=== PATIENT | male | born 1940 | race Two or more races ===

== ENCOUNTER 2017-07-20 09:36 | Outpatient (CLI) | payer OTHER ==
[~2017-07-20 09:36] MED LIST: MIRALAX12 EA PO; VASOTEC10 MG PO
== END 2017-07-20 09:51 | disposition home or self-care (01) ==
LOC: LAB 09:36
DX: I10 Essential (primary) hypertension (principal); E11.9 Type 2 diabetes mellitus without complications; E03.8 Other specified hypothyroidism; E78.2 Mixed hyperlipidemia; M81.0 Age-related osteoporosis without current pathological fracture

== ENCOUNTER 2017-10-17 11:38 | Outpatient (CLI) | payer OTHER | END 2017-10-17 11:42 | disposition home or self-care (01) | LOC: LAB 11:38 | DX: B35.1 Tinea unguium (principal) ==

== ENCOUNTER 2017-10-28 08:24 | Outpatient (CLI) | payer OTHER ==
[~2017-10-28] VITALS: Ht 182.9 cm; Wt 77.1 kg
== END 2017-10-28 08:40 | disposition home or self-care (01) ==
LOC: OFIC 805 08:24
DX: H90.3 Sensorineural hearing loss, bilateral (principal); H61.23 Impacted cerumen, bilateral; H93.13 Tinnitus, bilateral; M26.69 Other specified disorders of temporomandibular joint

== ENCOUNTER 2017-11-17 09:55 | Outpatient (CLI) | payer OTHER | END 2017-11-17 10:00 | disposition home or self-care (01) | LOC: LAB 09:55 | DX: B35.1 Tinea unguium (principal) ==

== ENCOUNTER 2017-12-21 10:27 | Outpatient (CLI) | payer OTHER | END 2017-12-21 10:29 | disposition home or self-care (01) | LOC: LAB 10:27 | DX: B35.1 Tinea unguium (principal) ==

== ENCOUNTER 2018-01-06 09:00 | Outpatient (CLI) | payer OTHER ==
[~2018-01-06] VITALS: Ht 182.9 cm; Wt 77.1 kg
== END 2018-01-06 09:15 | disposition home or self-care (01) ==
LOC: OFIC 805 09:00
DX: H90.3 Sensorineural hearing loss, bilateral (principal); H93.13 Tinnitus, bilateral

== ENCOUNTER 2018-01-06 12:28 | Outpatient (CLI) | payer OTHER | END 2018-01-06 12:31 | disposition home or self-care (01) | LOC: LAB 12:28 | DX: R42 Dizziness and giddiness (principal) ==

== ENCOUNTER 2018-01-09 10:39 | Outpatient (CLI) | payer OTHER | END 2018-01-09 10:50 | disposition home or self-care (01) | LOC: MRI 10:39 | DX: H93.12 Tinnitus, left ear (principal); H90.42 Sensorineural hearing loss, unilateral, left ear, with unrestricted hearing on the contralateral side | CPT/HCPCS: 70553; A9579; 70551 ==

== ENCOUNTER 2018-01-25 15:45 | Outpatient (CLI) | payer OTHER | END 2018-01-25 15:46 | disposition home or self-care (01) | LOC: LAB 15:45 | DX: B35.1 Tinea unguium (principal) ==

== ENCOUNTER 2018-01-27 07:39 | Outpatient (CLI) | payer OTHER ==
[~2018-01-27] VITALS: Ht 182.9 cm; Wt 77.1 kg
== END 2018-01-27 08:00 | disposition home or self-care (01) ==
LOC: OFIC 805 07:39
DX: H90.3 Sensorineural hearing loss, bilateral (principal); H61.23 Impacted cerumen, bilateral; H93.13 Tinnitus, bilateral; M26.613 Adhesions and ankylosis of bilateral temporomandibular joint; R14.0 Abdominal distension (gaseous)

== ENCOUNTER 2018-03-09 14:06 | Outpatient (CLI) | payer OTHER | END 2018-03-09 14:18 | disposition home or self-care (01) | LOC: LAB 14:06 | DX: F52.21 Male erectile disorder (principal); E29.1 Testicular hypofunction; C61 Malignant neoplasm of prostate; B35.1 Tinea unguium ==

== ENCOUNTER → 2018-03-22 09:07 | Outpatient (CLI) | payer OTHER | END | disposition home or self-care (01) | LOC: LAB 09:07 | DX: I10 Essential (primary) hypertension (principal); E11.9 Type 2 diabetes mellitus without complications; E03.8 Other specified hypothyroidism; E78.2 Mixed hyperlipidemia; N40.0 Benign prostatic hyperplasia without lower urinary tract symptoms; M81.0 Age-related osteoporosis without current pathological fracture ==

== ENCOUNTER 2018-05-05 09:02 | Outpatient (CLI) | payer OTHER ==
[~2018-05-05] VITALS: Ht 182.9 cm; Wt 77.1 kg
== END 2018-05-05 09:15 | disposition home or self-care (01) ==
LOC: OFIC 805 09:02
DX: H90.3 Sensorineural hearing loss, bilateral (principal); H61.23 Impacted cerumen, bilateral; H93.13 Tinnitus, bilateral; M26.613 Adhesions and ankylosis of bilateral temporomandibular joint

== ENCOUNTER 2018-08-24 11:27 | Outpatient (CLI) | payer OTHER | END 2018-08-24 11:34 | disposition home or self-care (01) | LOC: LAB 11:27 | DX: E03.8 Other specified hypothyroidism (principal); I10 Essential (primary) hypertension; E11.9 Type 2 diabetes mellitus without complications; E78.2 Mixed hyperlipidemia; Z12.11 Encounter for screening for malignant neoplasm of colon; N40.0 Benign prostatic hyperplasia without lower urinary tract symptoms ==

== ENCOUNTER 2018-08-25 11:35 | Outpatient (CLI) | payer OTHER | END 2018-08-25 11:40 | disposition home or self-care (01) | LOC: LAB 11:35 | DX: E03.8 Other specified hypothyroidism (principal); E11.9 Type 2 diabetes mellitus without complications; I10 Essential (primary) hypertension; E78.2 Mixed hyperlipidemia; Z12.11 Encounter for screening for malignant neoplasm of colon; N40.0 Benign prostatic hyperplasia without lower urinary tract symptoms ==

== ENCOUNTER 2018-09-08 09:36 | Outpatient (CLI) | payer OTHER | END 2018-09-08 09:43 | disposition home or self-care (01) | LOC: LAB 09:36 | DX: F52.21 Male erectile disorder (principal); C61 Malignant neoplasm of prostate; R31.29 Other microscopic hematuria; E29.1 Testicular hypofunction ==

== ENCOUNTER → 2018-09-12 | Outpatient (CLI) | payer OTHER | END | disposition home or self-care (01) | LOC: NUCLEAR 07:00 | DX: R07.89 Other chest pain (principal); I10 Essential (primary) hypertension ==

== ENCOUNTER → 2019-02-20 08:37 | Outpatient (CLI) | payer OTHER | END | disposition home or self-care (01) | LOC: LAB 08:37 | DX: I10 Essential (primary) hypertension (principal); E11.9 Type 2 diabetes mellitus without complications; E03.8 Other specified hypothyroidism; E78.2 Mixed hyperlipidemia ==

== ENCOUNTER → 2019-06-22 09:17 | Outpatient (CLI) | payer OTHER | END | disposition home or self-care (01) | LOC: LAB 09:17 | DX: E78.2 Mixed hyperlipidemia (principal); I10 Essential (primary) hypertension; E11.9 Type 2 diabetes mellitus without complications; Z12.31 Encounter for screening mammogram for malignant neoplasm of breast; E03.8 Other specified hypothyroidism ==

== ENCOUNTER 2019-06-26 09:57 | Outpatient (CLI) | payer OTHER | END 2019-06-26 10:00 | disposition home or self-care (01) | LOC: LAB 09:57 | DX: E11.9 Type 2 diabetes mellitus without complications (principal); I10 Essential (primary) hypertension; E03.8 Other specified hypothyroidism; E78.2 Mixed hyperlipidemia; Z12.11 Encounter for screening for malignant neoplasm of colon; N40.0 Benign prostatic hyperplasia without lower urinary tract symptoms ==

== ENCOUNTER → 2020-02-11 09:38 | Outpatient (CLI) | payer OTHER | END | disposition home or self-care (01) | LOC: LAB 09:38 | PROVIDERS: ATTEND Internal Medicine Cardiovascular Disease | DX: N40.0 Benign prostatic hyperplasia without lower urinary tract symptoms (principal); I10 Essential (primary) hypertension; E11.9 Type 2 diabetes mellitus without complications; E03.8 Other specified hypothyroidism; E78.2 Mixed hyperlipidemia; E55.9 Vitamin D deficiency, unspecified ==

== ENCOUNTER → 2020-10-21 10:36 | Outpatient (CLI) | payer OTHER | END | disposition home or self-care (01) | LOC: LAB 10:36 | PROVIDERS: ATTEND Internal Medicine Cardiovascular Disease | DX: E03.9 Hypothyroidism, unspecified (principal); I10 Essential (primary) hypertension; E11.9 Type 2 diabetes mellitus without complications; E78.2 Mixed hyperlipidemia; Z12.11 Encounter for screening for malignant neoplasm of colon; N40.0 Benign prostatic hyperplasia without lower urinary tract symptoms ==

== ENCOUNTER → 2020-10-22 13:37 | Outpatient (CLI) | payer OTHER | END | disposition home or self-care (01) | LOC: LAB 13:37 | PROVIDERS: ATTEND Internal Medicine Cardiovascular Disease | DX: I10 Essential (primary) hypertension (principal); E11.9 Type 2 diabetes mellitus without complications; E03.9 Hypothyroidism, unspecified; E78.2 Mixed hyperlipidemia; Z12.11 Encounter for screening for malignant neoplasm of colon; N40.0 Benign prostatic hyperplasia without lower urinary tract symptoms ==

== ENCOUNTER 2021-01-15 10:06 | Outpatient (CLI) | payer OTHER | END 2021-01-15 10:07 | disposition home or self-care (01) | LOC: LAB 10:06 | PROVIDERS: ATTEND Internal Medicine Cardiovascular Disease | DX: I10 Essential (primary) hypertension (principal) ==

== ENCOUNTER 2021-05-29 11:23 | Outpatient (CLI) | payer OTHER | END 2021-05-29 11:39 | disposition home or self-care (01) | LOC: LAB 11:23 | PROVIDERS: ATTEND Internal Medicine Cardiovascular Disease | DX: I10 Essential (primary) hypertension (principal); E11.9 Type 2 diabetes mellitus without complications; E03.8 Other specified hypothyroidism; E78.2 Mixed hyperlipidemia ==

== ENCOUNTER 2021-06-26 14:40 | Outpatient (CLI) | payer OTHER | END 2021-06-26 14:57 | disposition home or self-care (01) | LOC: RAD 14:40 | DX: M54.51 Vertebrogenic low back pain (principal); M54.16 Radiculopathy, lumbar region ==

== ENCOUNTER 2021-07-16 10:04 | Outpatient (CLI) | payer OTHER | END 2021-07-16 10:13 | disposition home or self-care (01) | LOC: MRI 10:04 | PROVIDERS: ATTEND Physical Medicine & Rehabilitation | DX: M54.16 Radiculopathy, lumbar region (principal) | CPT/HCPCS: 72148 ==

== ENCOUNTER 2022-02-12 09:55 | Outpatient (CLI) | payer OTHER | END 2022-02-12 10:07 | disposition home or self-care (01) | LOC: LAB 09:55 | PROVIDERS: ATTEND Internal Medicine Cardiovascular Disease | DX: I10 Essential (primary) hypertension (principal); E11.9 Type 2 diabetes mellitus without complications; E03.9 Hypothyroidism, unspecified; E78.2 Mixed hyperlipidemia; Z12.11 Encounter for screening for malignant neoplasm of colon; E55.9 Vitamin D deficiency, unspecified ==

== ENCOUNTER 2022-02-15 11:18 | Outpatient (CLI) | payer OTHER | END 2022-02-15 11:19 | disposition home or self-care (01) | LOC: LAB 11:18 | PROVIDERS: ATTEND Internal Medicine Cardiovascular Disease | DX: I10 Essential (primary) hypertension (principal); E11.9 Type 2 diabetes mellitus without complications; E03.9 Hypothyroidism, unspecified; E78.2 Mixed hyperlipidemia; Z12.11 Encounter for screening for malignant neoplasm of colon; E55.9 Vitamin D deficiency, unspecified ==

== ENCOUNTER 2022-06-03 10:39 | Outpatient (CLI) | payer OTHER | END 2022-06-03 10:48 | disposition home or self-care (01) | LOC: LAB 10:39 | PROVIDERS: ATTEND Internal Medicine Cardiovascular Disease | DX: I10 Essential (primary) hypertension (principal); E11.9 Type 2 diabetes mellitus without complications; E03.9 Hypothyroidism, unspecified; E78.2 Mixed hyperlipidemia; Z12.11 Encounter for screening for malignant neoplasm of colon ==

== ENCOUNTER 2022-06-04 10:34 | Outpatient (CLI) | payer OTHER | END 2022-06-04 10:44 | disposition home or self-care (01) | LOC: LAB 10:34 | PROVIDERS: ATTEND Internal Medicine Cardiovascular Disease | DX: I10 Essential (primary) hypertension (principal); E11.9 Type 2 diabetes mellitus without complications; E03.9 Hypothyroidism, unspecified; E78.2 Mixed hyperlipidemia; Z12.11 Encounter for screening for malignant neoplasm of colon ==

== ENCOUNTER 2022-10-30 09:00 | Emergency (ER) | payer OTHER ==
[~2022-10-30] VITALS: Ht 167.6 cm; Wt 74.8 kg
== END 2022-10-30 16:54 ==
LOC: ER 09:00
DX: U07.1 COVID-19 (principal); I10 Essential (primary) hypertension

== ENCOUNTER 2022-11-01 09:34 | Outpatient (CLI) | payer OTHER | END 2022-11-01 09:41 | disposition home or self-care (01) | LOC: LAB 09:34 | PROVIDERS: ATTEND General Practice | DX: A49.3 Mycoplasma infection, unspecified site (principal); D69.6 Thrombocytopenia, unspecified ==

== ENCOUNTER 2022-11-02 20:26 | Emergency (ER) | payer OTHER ==
[~2022-11-02] VITALS: Ht 167.6 cm; Wt 75.7 kg
== END 2022-11-02 22:54 | disposition home or self-care (01) ==
LOC: ER 20:26
DX: U07.1 COVID-19 (principal); R53.81 Other malaise; T50.905A Adverse effect of unspecified drugs, medicaments and biological substances, initial encounter; I10 Essential (primary) hypertension

== ENCOUNTER 2022-11-08 09:31 | Outpatient (CLI) | payer OTHER | END 2022-11-08 09:39 | disposition home or self-care (01) | LOC: LAB 09:31 | PROVIDERS: ATTEND Internal Medicine Cardiovascular Disease | DX: I10 Essential (primary) hypertension (principal); E11.9 Type 2 diabetes mellitus without complications; E03.9 Hypothyroidism, unspecified; E78.2 Mixed hyperlipidemia ==

== ENCOUNTER → 2023-03-15 09:48 | Outpatient (CLI) | payer OTHER ==
[2023-03-15 10:46] LABS: HEMATOCRIT 46.1 % (39.0-48.0); HEMOGLOBIN 15.5 g/dL (13-16.00); MEAN CELL VOLUME 89.8 fL (80.0-100.00); MEAN CORPUSCULAR HEMOGLOBIN 30.2 pg (27.00-32.0); MEAN CORPUSCULAR HGB CONC 33.6 g/dl (32.0-36.0); PLATELET COUNT 145 K/uL (150-450); RED BLOOD COUNT 5.14 M/uL (4.00-6.00); RED CELL DISTRIBUTION WIDTH 14.1 % (11.5-14.5)
[2023-03-15 12:12] LABS: CALCIUM 9.3 mg/dL (8.5-10.1); CHOL HDL RATIO 4.3 (0-5.0); CREATININE SERUM 1.1 mg/dL (0.70-1.30); GFR 63.93; POTASSIUM 4.17 mEq/L (3.5-5.1)
== END | disposition home or self-care (01) ==
LOC: LAB 09:48
PROVIDERS: ATTEND Internal Medicine Cardiovascular Disease
DX: E78.2 Mixed hyperlipidemia (principal); E11.9 Type 2 diabetes mellitus without complications

== ENCOUNTER 2023-07-21 11:46 | Outpatient (CLI) | payer OTHER | END 2023-07-21 12:17 | disposition home or self-care (01) | LOC: RAD 11:46 | PROVIDERS: ATTEND Internal Medicine Rheumatology | DX: M19.041 Primary osteoarthritis, right hand (principal); M19.042 Primary osteoarthritis, left hand ==

== ENCOUNTER 2023-08-18 12:55 | Outpatient (CLI) | payer OTHER | END 2023-08-18 13:09 | disposition home or self-care (01) | LOC: RAD 12:55 | PROVIDERS: ATTEND Internal Medicine Cardiovascular Disease | DX: G56.01 Carpal tunnel syndrome, right upper limb (principal) ==

== ENCOUNTER 2023-08-26 11:02 | Emergency (ER) | payer OTHER ==
[~2023-08-26] VITALS: Ht 167.6 cm; Wt 77.1 kg
[2023-08-26] MEDS ORDERED: TOPROL XL25 M1 PO (11:25)
[2023-08-26] MEDS ORDERED: GABAPENTIN300 MG (11:25)
[2023-08-26] MEDS ORDERED: ATORVASTATIN CA20 MG PO (11:25)
[2023-08-26] MEDS ORDERED: OMEPRAZOLE20 MG PO (11:26)
[2023-08-26] MEDS ORDERED: PEPCID AC20 MG PO (11:26)
[2023-08-26] MEDS ORDERED: AUGMENTIN125 MG/5 M PO (11:27)
[2023-08-26] MEDS ORDERED: MECLIZINE HCL 12.5 MG TABLET PO STA (12:00)
[2023-08-26] MEDS ORDERED: MECLIZINE HCL12.5 MG PO (12:49)
== END 2023-08-26 13:13 | disposition home or self-care (01) ==
LOC: ER 11:02
DX: R42 Dizziness and giddiness (principal); I10 Essential (primary) hypertension

== ENCOUNTER 2023-12-02 22:47 | Emergency (ER) | payer OTHER ==
[~2023-12-02] VITALS: Ht 167.6 cm; Wt 72.6 kg
[~2023-12-02 22:47] MED LIST changes: +ATORVASTATIN CA20 MG PO; +AUGMENTIN125 MG/5 M PO; +GABAPENTIN300 MG; +MECLIZINE HCL12.5 MG PO; +OMEPRAZOLE20 MG PO; +PEPCID AC20 MG PO; +TOPROL XL25 M1 PO
[2023-12-03] MEDS ORDERED: HYOSCYAMINE SULFATE 0.125 MG TAB.SUBL SL STA (00:30)
[2023-12-03] MEDS ORDERED: HYOSCYAMINE SULFATE 0.125 MG TAB.SUBL ONE (00:33)
[2023-12-03] MEDS ORDERED: METOCLOPRAMIDE HCL 5 MG/ML VIAL IM STA (00:46)
[2023-12-03] MEDS ORDERED: METOCLOPRAMIDE HCL 5 MG/ML VIAL ONE (00:51)
[2023-12-03] MEDS ORDERED: RINGERS SOLUTION,LACTATED 1,000 ML IV STA (01:23)
[2023-12-03 02:15] LABS: HEMATOCRIT 49.7 % (39.0-48.0); HEMOGLOBIN 16.8 g/dL (13-16.00); MEAN CELL VOLUME 90.1 fL (80.0-100.00); MEAN CORPUSCULAR HEMOGLOBIN 30.4 pg (27.00-32.0); MEAN CORPUSCULAR HGB CONC 33.8 g/dl (32.0-36.0); PLATELET COUNT 148 K/uL (150-450); RED BLOOD COUNT 5.52 M/uL (4.00-6.00)
[2023-12-03 02:20] LABS: INR 1.03; PARTIAL THROMBOPLASTIN TIME 25.4 SECONDS (22.0-34.0); PROTHROMBIN TIME 10.8 SECONDS (9.0-11.5)
[2023-12-03 02:51] LABS: ALBUMIN 4.3 gm/dL (3.4-5.0); BILIRUBIN TOTAL 0.7 mg/dL (0.3-1.2); CALCIUM 9.9 mg/dL (8.5-10.1); CREATININE SERUM 1.31 mg/dL (0.70-1.30); GFR 52.13; GLOBULINA 4.4 G/DL (2.4-3.5); POTASSIUM 3.99 mEq/L (3.5-5.1); TOTAL PROTEIN 8.7 gm/dL (6.4-8.2)
[2023-12-03] MEDS ORDERED: PANTOPRAZOLE SODIUM 40 MG/VIAL VIAL IV PUSH STA (04:54)
[2023-12-03] MEDS ORDERED: NIFEDIPINE 10 MG CAPSULE PO ONE ×2 (09:30→09:38)
[2023-12-03] MEDS ORDERED: ONDANSETRON HCL 2 MG/ML VIAL IV ONE (09:30)
[2023-12-03] MEDS ORDERED: ONDANSETRON HCL 2 MG/ML VIAL ONE (09:38)
[2023-12-03] MEDS ORDERED: PANTOPRAZOLE SO40 MG PO (12:05)
== END 2023-12-03 12:15 | disposition home or self-care (01) ==
LOC: ER 22:48
DX: R13.19 Other dysphagia (principal)
CPT/HCPCS: 36415; 70360; 70490; 71250; 96365; 96372; 99284; J2405; J2765; J3490

== ENCOUNTER 2024-11-30 08:53 | Outpatient (CLI) | payer OTHER ==
[~2024-11-30 08:53] MED LIST changes: +PANTOPRAZOLE SO40 MG PO
== END 2024-11-30 08:55 | disposition home or self-care (01) ==
LOC: SONOGRAMA 08:53
PROVIDERS: ATTEND Internal Medicine Gastroenterology
DX: R10.9 Unspecified abdominal pain (principal)

== ENCOUNTER 2025-04-24 16:21 | Outpatient (CLI) | payer OTHER | END 2025-04-24 16:26 | disposition home or self-care (01) | LOC: RAD 16:21 | DX: M12.9 Arthropathy, unspecified (principal) ==